=== PATIENT | male | born 1940 | race Caucasian/White ===

== ENCOUNTER 2021-01-26 16:50 | Outpatient (RCR) | payer MEDICARE, SELFPAY ==
[2021-01-26] MEDS: COVID-19 VACC, MRNA(PFIZER)/PF 30 MCG/0.3 ML SYRINGE IM (14:20)
[2021-02-16] MEDS: COVID-19 VACC, MRNA(PFIZER)/PF 30 MCG/0.3 ML SYRINGE IM (14:11)
== END 2021-05-02 23:59 ==
LOC: IMMUN 16:50
PROVIDERS: PCP Family Medicine; Referring Provider Family Medicine; Visit Provider Family Medicine
DX: Z23 Encounter for immunization (principal)
CPT/HCPCS: 0001A; 0002A; 91300

== ENCOUNTER 2022-06-07 10:17 | Emergency (ER) | payer MEDICARE, SELFPAY ==
[2022-06-07 10:18] VITALS: BP 131/71; PULSE 58; RESP 14; TEMP 37.1; O2SAT 98; BMI 22.6
--- NOTE | 2022-06-07 10:34 | EX.ED.GUMALE ---
HPI History of Present Illness Chief Complaint: Complaint Detail of Chief Complaint: Dysuria since yesterday Informant: patient Narrative Narrative: Patient presents to the emergency department with complaint of dysuria that started yesterday. Patient also states that he started with a fever 5 days ago that was low-grade up to 101.8. Patient had diarrhea for 2 days and now that seems to have resolved. Patient states that he was urinating about every hour last night. He denies any back pain or abdominal pain. He denies any vomiting. Patient took a COVID test 3 days ago and was negative. Patient has had the COVID-vaccine and booster. Prior similar symptoms: No PFSH [facility] Medical History (Updated 06/07/22 @ 11:[address] Donavan Wright, DO) HTN (hypertension) Home Medications cephalexin 500 mg capsule 500 mg PO Q6 #40 CAPSULES 06/07/22 [Rx Last Taken Unknown] phenazopyridine 200 mg tablet (Pyridium) 200 mg PO TID 6 doses #6 tabs 06/07/22 [Rx Last Taken Unknown] Allergy/AdvReac Type Severity Reaction Status Date / Time No Known Allergies Allergy Verified 06/07/22 10:20 Social History Smoking Status: Never smoker ROS ROS ED Review of Systems ROS Unobtainable: other Constitutional Constitutional ED: Reports fever(s) and lethargy; Denies chills, sweats or weight loss Eyes Eyes: Denies blurry vision, change in vision or diplopia ENT ENT ED: Denies rhinorrhea or sore throat Cardiovascular Cardiovascular: Reports chest pain and racing heartbeat; Denies orthopnea Respiratory/Chest Respiratory/Chest: Reports dyspnea and dyspnea on exertion; Denies cough, orthopnea or sputum Gastrointestinal Gastrointestinal: Denies abdominal pain, diarrhea, nausea or vomiting Genitourinary Genitourinary ED: Reports dysuria and urinary frequency; Denies hematuria Musculoskeletal Musculoskeletal: Denies arthralgias, back pain, myalgias or neck pain Integumentary Denies abscess, Abrasions or rash Neurologic Neurologic: Denies headache(s) or weakness Psychiatric Psychiatric: Denies anxiety, depression or suicidal thoughts Endocrine Endocrinology: Denies polydipsia, polyphagia or polyuria Hematologic/Lymphatic Hematologic/Lymphatic: Denies easy bleeding, easy bruising or lymphadenopathy Allergic/Immunologic Allergic/Immunologic ED: Denies mouth swelling, tongue swelling or urticaria EXAM Physical Exam Const Vital Signs: 06/07/22 10:18 Temperature 98.8 F Temperature Source Temporal Pulse Rate 58 L Respiratory Rate 14 Blood Pressure 131/71 H Blood Pressure Mean 91 Pulse Ox 98 Oxygen Delivery Method Room Air Positive well nourished and well developed General Appearance ED: well developed and NAD HEENT Reports TM's clear and moist mucous membranes normocephalic and atraumatic; Negative for trauma or tenderness Tympanic Membrane ED: Yes TM's clear Eyes PERRL and EOMs intact bilaterally General Eye ED: Negative for pale conjunctiva or scleral icterus Neck no lymphadenopathy, supple and no JVD General: Negative for tenderness Chest Wall inspection of chest normal and palpation of chest normal Chest: Negative for tenderness Resp normal respiratory effort and clear to auscultation bilaterally Effort and Inspection: Negative for respiratory distress or pain with movement Auscultation: Negative for rhonchi, wheezes or diminished lung sounds Cardio regular rate, regular rhythm, S1 normal heart sound, S2 normal heart sound and no murmurs Peripheral Pulses: pulses 2+ throughout GI normal to inspection, nondistended, normoactive bowel sounds, soft to palpation, non-tender, non-distended and no masses Back/Spine no CVA tenderness and no thoracic nor lumbar tenderness Extremity normal to inspection General Extremety ED: Negative for edema General Extremity: Negative for edema Neuro oriented x3, CN's II-XII intact bilaterally, no sensory deficits noted and gait normal Sensorium / Orientation: awake, alert, oriented to person, oriented to place and oriented to time Motor Exam: strength 5/5 throughout and strength abnormal Psych mental status grossly normal Skin no rashes or lesions noted and no wounds MDM MDM MDM Narrative Medical decision making narrative: Patient had a bladder scan performed on arrival that showed 100 cc of urine after he was able to give a urine sample. I do not feel he is having retention issues. Urinalysis obtained and was positive for 500 excite esterase as well as 10-25 WBCs and +3 bacteria. Given his symptoms and the appearance of the urine I suspect he has a urinary tract infection. Patient will be started on Keflex and Pyridium. Patient advised to follow-up with primary care physician in 3 to 5 days. Patient also will have urine culture sent. Patient advised to return if severe abdominal pain, fever, vomiting, or condition worsen anyway. Lab Data Labs: Laboratory Results - last 24 hr 06/07/22 10:49 Urine Color Yellow Urine Clarity Cloudy Urine pH 6.0 Ur Specific [place] 1.015 Urine Protein 100 H Urine Glucose (UA) Normal Urine Ketones Negative Urine Occult Blood 50 H Urine Nitrite Negative Urine Bilirubin Negative Urine Urobilinogen Normal Ur Leukocyte Esterase 500 H Urine RBC 0 SEEN Urine WBC 10-25 SEEN Ur Squamous Epith Cells 0 SEEN Urine Bacteria 3+ Urine Mucus 0 SEEN Discharge Plan Triage Chief Complaint: Complaint ED Provider: Donavan Wright Dx/Rx/DC Orders Clinical Impression: Urinary tract infection Instructions: ED Urinary Tract Infections in Men Prescriptions: New cephalexin [cephalexin] 500 mg capsule 500 mg PO Q6 Qty: 40 0RF phenazopyridine [Pyridium] 200 mg tablet 200 mg PO TID Qty: 6 0RF Primary Care Provider: Care Physician,No Primary Referrals: Pacheco Sánchez MD [NON-STAFF] - 3-5 Days Disposition Disposition: Home, Self Care
[2022-06-07 10:53] LABS: Mucous, Urine 0 SEEN /hpf (<or=2+); Red Blood Cells-Urine 0 SEEN /hpf (0-5); Squamous Epithelial Cells - UA 0 SEEN /hpf (0-5)
[2022-06-07 10:59] LABS: Color, Urine Yellow (Yellow); Glucose, Dipstick Normal (Normal); Ketone-Dipstick Negative (Negative); Leukocyte Esterase-Dipstick 500 /ul (Negative); Nitrite-Dipstick Negative (Negative); Occult Blood-Urine 50 /ul (Negative); Protein-Dipstick 100 mg/dl (Negative); Specific Gravity, Urine 1.015 (1.002-1.030); Urine Bilirubin Dipstick Negative (Negative); Urine Clarity Cloudy (Clear); Urine Urobilinogen Normal (Normal)
[2022-06-07 11:07] LABS: Bacteria 3+ /hpf (None Seen); White Blood Cells 10-25 SEEN /hpf (0-5)
[2022-06-07] MEDS: Cephalexin 250 MG Capsule 500 MG PO (11:25)
[2022-06-07] MEDS: Phenazopyridine 95 MG Tablet 190 MG PO (11:25)
== END 2022-06-07 11:49 | disposition home or self-care (01) ==
PROVIDERS: Emergency Provider Emergency Medicine; Visit Provider Emergency Medicine
DX: N39.0 Urinary tract infection, site not specified (principal); I10 Essential (primary) hypertension
CPT/HCPCS: 81001; 87077; 87086; 87088; 87186; 99283

== ENCOUNTER 2022-06-08 | Emergency (ER) | payer MEDICARE, SELFPAY ==
[2022-06-08 00:01] VITALS: BP 145/72; PULSE 61; RESP 16; TEMP 36.6; O2SAT 97; BMI 22.6
[2022-06-08 00:03] VITALS: BP 145/72; PULSE 88; RESP 14; TEMP 36.6; O2SAT 97
--- NOTE | 2022-06-08 00:22 | EX.ED.GUMALE ---
HPI History of Present Illness Chief Complaint: Complaint Informant: patient Pain Onset: Today Context: Gradual Onset Timing: Continuous Worsened by: Attempts to urinate Relieved by: Nothing Urinary Symptoms Genitourinary Symptoms: Retention, Dysuria and Hematuria Narrative Narrative: Patient presents with urinary retention and hematuria that began today. Patient was seen here earlier today and diagnosed with a urinary tract infection. Patient was started on Keflex and Pyridium. Patient states his urine was more pinkish instead of the orange color associated with Pyridium. Patient admits to some pressure over his suprapubic area. Patient states this is getting progressively worse. Patient denies any fevers currently. Patient states he had a recent upper respiratory infection. Patient states he had some nausea with that. Patient also admits to a mild headache. Patient denies any back or flank pain. Patient denies any vomiting. [facility] Medical History HTN (hypertension) Home Medications cephalexin 500 mg capsule 500 mg PO Q6 #40 CAPSULES 06/07/22 [Rx Last Taken Unknown] phenazopyridine 200 mg tablet (Pyridium) 200 mg PO TID 6 doses #6 tabs 06/07/22 [Rx Last Taken Unknown] amlodipine 5 mg tablet 5 mg PO DAILY 06/08/22 [History Last Taken Unknown] atenolol 50 mg tablet 50 mg PO DAILY 06/08/22 [History Last Taken Unknown] Allergy/AdvReac Type Severity Reaction Status Date / Time No Known Allergies Allergy Verified 06/08/22 00:03 Surgical History no surgical history no surgical history Social History Smoking Status: Never smoker ROS ROS ED Constitutional Constitutional ED: Reports fever(s); Denies chills Eyes Eyes: Denies blurry vision or change in vision ENT ENT ED: Denies rhinorrhea or sore throat Cardiovascular Cardiovascular: Denies chest pain or palpitations Respiratory/Chest Respiratory/Chest: Denies cough or dyspnea Gastrointestinal Gastrointestinal: Reports nausea; Denies vomiting Genitourinary Genitourinary ED: Reports dysuria and hematuria Musculoskeletal Musculoskeletal: Denies back pain or neck pain Integumentary Denies abscess or rash Neurologic Neurologic: Reports headache(s); Denies weakness Allergic/Immunologic Allergic/Immunologic ED: Denies mouth swelling or urticaria EXAM Physical Exam Const Vital Signs: 06/08/22 00:01 06/08/22 00:03 Temperature 97.9 F 97.8 F Temperature Source Temporal Temporal Pulse Rate 61 88 Respiratory Rate 16 14 Blood Pressure 145/72 H 145/72 H Blood Pressure Mean 96 96 Pulse Ox 97 97 Oxygen Delivery Method Room Air Room Air Positive well nourished and well developed General Appearance ED: well developed and NAD HEENT Reports moist mucous membranes Resp normal respiratory effort and clear to auscultation bilaterally Cardio regular rate and regular rhythm GI non-distended Auscultation: normoactive bowel sounds Palpation: soft and tender suprapubic; Negative for guarding Extremity normal to inspection Neuro oriented x3, CN's II-XII intact bilaterally, moves all extremities, no focal motor deficits and no sensory deficits noted Sensorium / Orientation: alert Motor Exam: strength 5/5 throughout Psych mental status grossly normal MDM MDM MDM Narrative Medical decision making narrative: Webb catheter was placed. Patient was given a leg bag. Patient was instructed to continue the Keflex as previously prescribed. Patient was given a referral for urology for follow-up care. Patient was instructed return if worse in any way. Patient understood and was agreeable with the plan. All questions were answered. Discharge Plan Triage Chief Complaint: Complaint ED Provider: Trung Begum Dx/Rx/DC Orders Clinical Impression: Acute urinary retention, Urinary tract infection Instructions: ED Urinary Retention, Male, ED Urinary Tract Infections in Men Prescriptions: No Action cephalexin [cephalexin] 500 mg capsule 500 mg PO Q6 Qty: 40 0RF phenazopyridine [Pyridium] 200 mg tablet 200 mg PO TID Qty: 6 0RF amlodipine 5 mg Tablet 5 mg PO DAILY atenolol 50 mg Tablet 50 mg PO DAILY Primary Care Provider: Pacheco Sánchez Referrals: Pacheco Sánchez MD [Primary Care Provider] - Josse Tucker MD [STAFF PHYSICIAN] - As soon as possible Disposition Disposition: Home, Self Care
[2022-06-08] MEDS: Lidocaine Jelly 2% 20 ML Syringe (URO-JET) 1 APPLIC TOPICAL (00:43)
== END 2022-06-08 00:54 | disposition home or self-care (01) ==
PROVIDERS: Emergency Provider Emergency Medicine; PCP Family Medicine; Visit Provider Emergency Medicine
DX: N39.0 Urinary tract infection, site not specified (principal); R51.9 Headache, unspecified; I10 Essential (primary) hypertension; R33.9 Retention of urine, unspecified
CPT/HCPCS: 51702; 99283

== ENCOUNTER 2022-06-13 04:45 | Emergency (ER) | payer MEDICARE, SELFPAY ==
[2022-06-13 09:23] LABS: Bacteria 0 SEEN /hpf (None Seen); Color, Urine Yellow (Yellow); Glucose, Dipstick Normal (Normal); Ketone-Dipstick Negative (Negative); Leukocyte Esterase-Dipstick Negative /ul (Negative); Mucous, Urine 0 SEEN /hpf (<or=2+); Nitrite-Dipstick Negative (Negative); Occult Blood-Urine Negative /ul (Negative); Protein-Dipstick Negative (Negative); Red Blood Cells-Urine 0 SEEN /hpf (0-5); Squamous Epithelial Cells - UA 0 SEEN /hpf (0-5); Urine Bilirubin Dipstick Negative (Negative); Urine Clarity Clear (Clear); Urine Urobilinogen Normal (Normal); Urine pH 6.5 (5.0 - 8.0); White Blood Cells 0 SEEN /hpf (0-5)
--- NOTE | 2022-06-13 22:21 | EX.ED.GUMALE ---
HPI History of Present Illness Informant: patient Narrative Narrative: Patient presents with lower abdominal pressure. He has inability to urinate. He does frequently but just gets a few dribbles out. He was seen here approximately a week ago diagnosed with UTI and placed on Keflex. He is not having nausea vomiting fevers or chills. He came back shortly after that with urinary retention. A Webb was placed. This was taken out earlier today and Dr. Tucker's office. He went home and now is not able to urinate again. Nothing makes this better or worse. This chart is done in its entirety a day or more after the patient's visit. This is due to an extended computerized downtime that included computer, Internet, phones, radiology system and transient inability to obtain medications. There may be details that are missed due to the delayed documentation. There was also no ability to research old information that we may have on the patient. Also, this is done with [employer] software that may have errors. Minimizing these errors are attempted, but all may not be able to be found and corrected. [facility] Medical History HTN (hypertension) Home Medications cephalexin 500 mg capsule 500 mg PO Q6 #40 CAPSULES 06/07/22 [Rx Last Taken Unknown] phenazopyridine 200 mg tablet (Pyridium) 200 mg PO TID 6 doses #6 tabs 06/07/22 [Rx Last Taken Unknown] amlodipine 5 mg tablet 5 mg PO DAILY 06/08/22 [History Last Taken Unknown] atenolol 50 mg tablet 50 mg PO DAILY 06/08/22 [History Last Taken Unknown] Allergy/AdvReac Type Severity Reaction Status Date / Time No Known Allergies Allergy Verified 06/08/22 00:03 Social History Smoking Status: Never smoker ROS ROS ED Constitutional Constitutional ED: Denies fever(s), subjective or sweats Cardiovascular Cardiovascular: Denies chest pain or palpitations Respiratory/Chest Respiratory/Chest: Denies cough or dyspnea Gastrointestinal Gastrointestinal: Reports abdominal pain; Denies diarrhea, melena, nausea or vomiting Genitourinary Genitourinary ED: Reports urinary frequency and other Details: See history of present illness peer ; Denies dysuria or hematuria Musculoskeletal Musculoskeletal: Denies back pain Integumentary Denies rash Neurologic Neurologic: Denies paresthesias or weakness Endocrine Endocrinology: Denies polydipsia Hematologic/Lymphatic Hematologic/Lymphatic: Reports other Details: No anticoagulation. No hematuria. ; Denies easy bleeding or easy bruising Allergic/Immunologic Allergic/Immunologic ED: Denies urticaria EXAM Physical Exam Const Positive well nourished and well developed Constitutional Narrative: Patient looks mildly uncomfortable General Appearance ED: well developed; Negative for pallor HEENT normocephalic Eyes General Eye ED: Negative for pale conjunctiva or scleral icterus Resp normal respiratory effort Cardio regular rate and regular rhythm GI GI Narrative: Patient does have palpably enlarged bladder in the lower abdomen. That is the only area that is tender. No rebound or guarding. no CVA tenderness Bladder / Kidney Exam: No CVA tenderness Extremity normal to inspection Neuro Sensorium / Orientation: alert Psych mental status grossly normal Skin General Skin Exam: Negative for jaundice or pallor MDM MDM MDM Narrative Medical decision making narrative: Patient had catheter placed. He has been watched here for a while. He has a total body 1000 cc out. It seems to came out initially a large amount but now slowing down significantly. The urine looks clear. No blood. He is completely resolved with his symptoms. I did send off a UA that showed no acute process. I also was able to look up his results when our computer system came back. He had had a positive E. coli sensitive to Keflex which she is on so he should continue this. I will also start him on Flomax at this time. Flomax prescription was done on paper due to the paper charting. He will follow-up with his urologist Lab Data Attestation: I reviewed the patient's lab results. Labs: Laboratory Results - last 24 hr 06/13/22 04:53 Urine Color Yellow Urine Clarity Clear Urine pH 6.5 Ur Specific [place] 1.010 Urine Protein Negative Urine Glucose (UA) Normal Urine Ketones Negative Urine Occult Blood Negative Urine Nitrite Negative Urine Bilirubin Negative Urine Urobilinogen Normal Ur Leukocyte Esterase Negative Urine RBC 0 SEEN Urine WBC 0 SEEN Ur Squamous Epith Cells 0 SEEN Urine Bacteria 0 SEEN Urine Mucus 0 SEEN Discharge Plan Triage ED Provider: Matt Machuca Dx/Rx/DC Orders Clinical Impression: Acute urinary retention Prescriptions: No Action cephalexin [cephalexin] 500 mg capsule 500 mg PO Q6 Qty: 40 0RF phenazopyridine [Pyridium] 200 mg tablet 200 mg PO TID Qty: 6 0RF amlodipine 5 mg Tablet 5 mg PO DAILY atenolol 50 mg Tablet 50 mg PO DAILY Primary Care Provider: Pacheco Sánchez Referrals: Josse Tucker MD [STAFF PHYSICIAN] - As soon as possible Disposition Disposition: Home, Self Care Discharge Date/Time: 06/13/22 08:06
== END 2022-06-13 08:06 | disposition home or self-care (01) ==
LOC: ED 07:47
PROVIDERS: Emergency Provider Emergency Medicine; PCP Family Medicine; Visit Provider Emergency Medicine
DX: R33.9 Retention of urine, unspecified (principal); I10 Essential (primary) hypertension; Z87.440 Personal history of urinary (tract) infections
CPT/HCPCS: 81001; 99284

== ENCOUNTER 2022-07-11 16:38 | Observation (INO) | payer MEDICARE, SELFPAY ==
[2022-07-11] VITALS (9 sets, daily range): BP systolic 108–135; BP diastolic 57–76; PULSE 58–74; RESP 16–18; TEMP 36–36.8; O2SAT 89–97; BMI 21.7; BMI 22.1
--- NOTE | 2022-07-11 | PROS_PTH ---
PATIENT: MANUEL SALGADO LOC: MS3 U#:[id number] AGE/SX: 81/M ROOM: [facility] [place]07/11/[address]: Dr. Josse Tucker MD : 1940 BED: 1 DIS: 07/12/2022 SPEC #: [id number] RECD: 07/11/22 16:58 STATUS: BAYRON VELIZ #: [id number] JESÚS: 07/11/22 00:[address]: Josse Tucker DEPT: SURGICAL PATHOLOGY RECD BY: Jose Carlos Hendricks ENTERED: 07/12/22 08:55 SP TYPE: TURP OTHR DR: Dr. Srinivas Gomez, DO Tissues: Prostate, NOS Procedures: Surgery Specimen Level IV HEADER OPERATION: Cysto,TUR, prostate, olympus PRE-OP DIAGNOSIS: BPH with retention TISSUE SUBMITTED: Prostate chips MICROSCOPIC DIAGNOSIS Prostate chips, TUR: Benign prostatic hyperplasia, glandular and stromal type. Focal marked acute and chronic granulomatous inflammation. SJ 07/13/2022 COMMENT Special stains for acid fast bacilli and fungi are negative for organisms; matched controls are appropriate. MICROSCOPIC DESCRIPTION Slides are reviewed. GROSS DESCRIPTION Received is one container labeled with the patient's name and designated prostate tissue. The specimen consists of multiple irregular fragments of pink-gong, rubbery, soft tissue that in aggregate weigh 24.5 gm and measure in aggregate 8 x 7.5 x 3.5 cm. [employer]visor [employer] tissue is submitted in 10 cassettes. /SJ:cc 07/12/22 TC:5 CPT: 17989, 94668 x2
--- NOTE | 2022-07-11 12:08 | EKG12_ITS ---
Test Reason : PREOP Blood Pressure : / mmHG Vent. Rate : 059 BPM Atrial Rate : 059 BPM P-R Int : 240 ms QRS Dur : 090 ms QT Int : 432 ms P-R-T Axes : 000 017 047 degrees QTc Int : 427 ms Sinus bradycardia with 1st degree A-V block Septal infarct , age undetermined Abnormal ECG When compared with ECG of 21-NOV-2007 14:50, TN interval has increased Septal infarct is now Present Confirmed by MEHUL OCHOA, ANN MARIE ([id number]), news videotape editor FERNANDO BANKS ([id number]) on 07/12/2022 2:03:09 PM Referred By: Josse Tucker Confirmed By:ANN MARIE CARVER MD
[2022-07-11] MEDS: Lactated Ringers 1,000 ML 15 ML IV (12:15)
--- NOTE | 2022-07-11 13:58 | PCM.HP.STD ---
HPI - General General Date of Service: 07/11/22 HPI Narrative MANUEL SALGADO, is a 81 M who presents for transurethral resection of prostate he has a catheter in for retention of urine. He has BPH with obstruction and retention PFSH Medical History Arthritis Back pain Heartburn History of pain when walking History of stress test HTN (hypertension) Indwelling urethral catheter present Loss of hearing Non-smoker Prostate disease Shortness of breath on exertion Syncope Wears glasses Wears partial dentures Home Medications phenazopyridine 200 mg tablet (Pyridium) 200 mg PO TID 6 doses #6 tabs 06/07/22 [Rx Last Taken Unknown] amlodipine 5 mg tablet 5 mg PO DAILY BP 06/08/22 [History Last Taken 07/11/22] atenolol 50 mg tablet 50 mg PO BID 06/08/22 [History Last Taken 07/11/22] acetaminophen 650 mg tablet,extended release 650 mg PO Q8H PRN Pain 07/05/22 [History Last Taken Unknown] ciprofloxacin HCl 500 mg tablet 500 mg PO BID 07/05/22 [History Last Taken Unknown] polyethylene glycol 3350 17 gram oral powder packet (Miralax) 17 g PO PRN PRN Constipation 07/05/22 [History Last Taken Unknown] tamsulosin 0.4 mg capsule 0.4 mg PO QHS 07/05/22 [History Last Taken Unknown] ciprofloxacin HCl 500 mg tablet (Cipro) 500 mg PO BID #14 tabs 07/11/22 [Rx Last Taken Unknown] Allergy/AdvReac Type Severity Reaction Status Date / Time No Known Allergies Allergy Verified 07/11/22 12:37 Surgical History Hx of colonoscopy Social History Smoking Status: Never smoker Vital Signs Vital Signs Vital Signs: 07/11/22 12:38 07/11/22 12:38 Temperature 97.6 F L Temperature Source Temporal Pulse Rate 58 L Respiratory Rate 17 Respiratory Pattern Normal Blood Pressure 135/76 H Blood Pressure Mean 95 Blood Pressure Source Monitor Blood Pressure Position Semi-Fowlers Blood Pressure Location Right Arm Pulse Ox 96 Oxygen Delivery Method Room Air Weight Weight: 61 kg Body Mass Index (BMI) 21.7
--- NOTE | 2022-07-11 13:58 | PCM.DC ---
Discharge Instructions Diet Discharge Diet: Light diet - advance as tolerated and Soft diet Activity Discharge Activity: May Not Drive Follow Up Care Please Follow Up With: Josse Tucker MD When: 2 weeks, call for appt. Test Results: Test results from this visit will be discussed in further detail at your follow-up appointment, if applicable. Discharge Plan Admission Primary Reason for Your Visit: tur Attending Provider: Josse uTcker Primary Care Provider: Srinivas Gomez Instructions Patient Instructions: [facility] Home Recovery Discharge Orders/Prescriptions Prescriptions: New ciprofloxacin HCl [Cipro] 500 mg tablet 500 mg PO BID Qty: 14 0RF Continued phenazopyridine [Pyridium] 200 mg tablet 200 mg PO TID Qty: 6 0RF amlodipine 5 mg Tablet 5 mg PO DAILY atenolol 50 mg Tablet 50 mg PO BID polyethylene glycol 3350 [Miralax] 17 gram Powder In Packet 17 g PO PRN PRN (Reason: Constipation) ciprofloxacin HCl 500 mg Tablet 500 mg PO BID acetaminophen 650 mg Tablet Extended Release 650 mg PO Q8H PRN (Reason: Pain) tamsulosin 0.4 mg Capsule 0.4 mg PO QHS Referrals / Follow Up: Srinivas Gomez DO [Primary Care Provider] - Josse Tucker MD [Med Staff - Active Staff] - Disposition Disposition (needs filled in before D/C Order can be placed): Home, Self Care
[2022-07-11] MEDS: Cefazolin 2 GM in 0.9% Normal Saline 100 ML IV (14:12)
--- NOTE | 2022-07-11 15:43 | PCM.OPRPT ---
Report of Operation Date of Procedure: 07/11/22 Pre-Operative Diagnosis: bph with retention of urine Post-Operative Diagnosis: same Surgery/Procedure Performed:: TURP Description of Surgical Findings:: In the preoperative setting I discussed with the patient how the surgery would be done with expect afterwards. We discussed how a prostate resection is done and we discussed the risk of the surgery including, bleeding, infection, retrograde ejaculation, changes with ejaculation or intercourse,. We discussed the possibility that the resection of the prostate may not alleviate his urinary symptoms. We discussed the small risk of developing scar tissue along the urethral channel and strictures. We also discussed the chance of the prostate could grow back and he may need further surgery or treatment in the future for prostate problems. Patient was taken back to the operating room, timeout procedure was performed, he was identified and marked and placed on the operating room table. He underwent general anesthesia. He was placed in dorsolithotomy position. Penis and testicles were prepped and draped in usual sterile fashion. Went into the bladder using the visual obturator with a resectoscope. Once inside the bladder identified the right and left ureteral orifice. I then identified the prostate and the anatomy of the prostate. I marked out the area of the sphincter and the verumontanum was identified. I then proceeded with the prostate resection first resected the median lobe. And then resected the right lobe of the prostate. Then to resect the left lobe of the prostate. I then resected the apical tissue of the prostate. This was a complete resection of all obstructive tissue to improve voiding and relieve obstruction. I then made sure that there was no injury to the sphincter or the verumontanum was still intact. At the end of the resection all the chips were Ellik out of the bladder. I then identified the left and right ureteral orifice and these were confirmed to be in good position and effluxing and not injured. The resectoscope was removed, a 22 Indonesian catheter was placed into the bladder on continuous irrigation. And the urine was fairly light pink color and draining normally. He was taken back to the PACU in good condition. CPT 88886 Surgeon: Josse Tucker Type of Anesthesia: General Drains: 22fr [address] Admit VTE Documentation VTE Present on Admission: No VTE Mechan Device Prophylaxis: SCD's VTE Pharm Prophylaxis ordered?: No
[2022-07-11] MEDS: Ciprofloxacin 500 MG Tablet PO (20:37)
[2022-07-11] MEDS: Tamsulosin HCl 0.4 MG Capsule PO (20:38)
[2022-07-12 01:58] VITALS: O2SAT 95
[2022-07-12 02:59] VITALS: BP 117/63; PULSE 54; RESP 18; TEMP 36.6; O2SAT 95
[2022-07-12 08:03] VITALS: BP 138/69; PULSE 64; RESP 18; TEMP 36.5; O2SAT 95
[2022-07-12] MEDS: Ciprofloxacin 500 MG Tablet PO (08:12)
[2022-07-12] MEDS: Atenolol 50 MG Tablet PO (08:12)
[2022-07-12] MEDS: amLODIPine 5 MG Tablet PO (08:12)
--- NOTE | 2022-07-12 10:06 | PHA.DC.MC ---
Pharmacy Service has performed discharge medication reconciliation and counseling for this patient. The patient was counseled on the following discharge medications and changes in medications for homegoing were reviewed. 1. CIPRO The Reason for Use, instructions for use, and potential side effects were reviewed for all new medications. The patient's questions regarding all of their medications were answered. The patient was able to verbally demonstrate an understanding of their discharge medications. Home Medications amlodipine 5 mg tablet 5 mg PO DAILY BP 06/08/22 atenolol 50 mg tablet 50 mg PO BID 06/08/22 acetaminophen 650 mg tablet,extended release 650 mg PO Q8H PRN Pain 07/05/22 ciprofloxacin HCl 500 mg tablet 500 mg PO BID 07/05/22 polyethylene glycol 3350 17 gram oral powder packet (Miralax) 17 g PO PRN PRN Constipation 07/05/22 tamsulosin 0.4 mg capsule 0.4 mg PO QHS 07/05/22 ciprofloxacin HCl 500 mg tablet (Cipro) 500 mg PO BID #14 tabs 07/11/22 The patient's discharge medication list was reviewed for discrepancies and discrepancies were resolved.
--- NOTE | 2022-07-12 12:18 | NURSING ---
Pt voided 200cc drk red urine this morning and another 200cc of drk red urine just now. Pt was Bladder scanned by Tracee Yanez RN, and only obtained 18cc per bladder scan. Pt does not feel urge to void.
[2022-07-12 13:34] VITALS: BP 129/63; PULSE 62; RESP 18; TEMP 36.5; O2SAT 95
== END 2022-07-12 13:43 | disposition home or self-care (01) ==
LOC: SDC 16:43 → MS3 17:41
PROVIDERS: Admitting Provider Urology; PCP Family Medicine; Referring Provider Urology; Visit Provider Urology
PROC: (CPT 52601; principal; 2022-07-11 14:00)
DX: N40.1 Benign prostatic hyperplasia with lower urinary tract symptoms (principal); R33.8 Other retention of urine; I10 Essential (primary) hypertension; M19.90 Unspecified osteoarthritis, unspecified site; N13.8 Other obstructive and reflux uropathy; Z79.899 Other long term (current) drug therapy
CPT/HCPCS: 52601; 00914; 88305; 93005; 99218; J7120; G0378; J2405

== ENCOUNTER → 2023-12-03 | Outpatient (CLI) | payer MEDICARE, SELFPAY | END | disposition home or self-care (01) | LOC: LAB 11:10 | PROVIDERS: PCP Family Medicine; Referring Provider Urology; Visit Provider Urology | DX: Z12.5 Encounter for screening for malignant neoplasm of prostate (principal) | CPT/HCPCS: 36415; 84153; G0103 ==

== ENCOUNTER → 2024-12-07 | Outpatient (CLI) | payer MEDICARE, SELFPAY ==
[2024-12-07 12:34] LABS: PSA,Total- Diagnostic 2.99 ng/mL (0.0-4.0)
== END | disposition home or self-care (01) ==
LOC: LAB 11:13
PROVIDERS: Referring Provider Nurse Practitioner; Visit Provider Nurse Practitioner
DX: R97.20 Elevated prostate specific antigen [PSA] (principal)

== ENCOUNTER 2025-11-18 21:20 | Emergency (ER) | payer MEDICARE, SELFPAY ==
[2025-11-18] VITALS (14 sets, daily range): BP systolic 104–143; BP diastolic 50–100; PULSE 58–77; RESP 14–18; TEMP 35.6–37.1; O2SAT 94–99; BMI 20.9
--- NOTE | 2025-11-18 21:22 | EKG12_ITS ---
Test Reason : NEURO Blood Pressure : */* mmHG Vent. Rate : 63 BPM Atrial Rate : 63 BPM P-R Int : 218 ms QRS Dur : 90 ms QT Int : 470 ms P-R-T Axes : 57 59 60 degrees QTcB Int : 480 ms Sinus rhythm with 1st degree A-V block with Premature supraventricular complexes Septal infarct , age undetermined Abnormal ECG Confirmed by Slade Nair ([id number]), editor magazine FERNANDO BANKS ([id number]) on 11/19/2025 8:26:04 AM Referred By: Confirmed By: Slade Nair
--- NOTE | 2025-11-18 21:25 | CT_ITS ---
PROCEDURE: STROKE BRAIN/HEAD WITHOUT CONT 11/18/2025 REASON FOR EXAM: NEURO DEFICIT, ACUTE, STROKE SUSPECTED TECHNIQUE: Procedure Code: CTBR.ST Modality: CT Procedure: STROKE BRAIN/HEAD WITHOUT CONT Coronal and Sagittal reconstruction series were provided. One or more dose reduction techniques were used (e.g., Automated exposure control, adjustment of the mA and/or kV according to patient size, use of iterative reconstruction technique. RADIATION DOSE SUMMARY: DLP: 829.85 mGycm COMPARISON: None available. FINDINGS: There is a right dense MCA sign. Subtle dos santos-white differentiation loss of the right insular cortex. No acute hemorrhage. Confluent periventricular and subcortical white matter hypodensities compatible with chronic microvascular ischemic changes. No significant mass effect or brain herniation. Global cerebral volume loss. No hydrocephalus. No extra-axial fluid collection. The basal cisterns are patent. The mastoid air cells are clear. The paranasal sinuses are predominantly clear. The calvarium appears intact. ASPECTS: Acute middle cerebral artery (MCA) Territory Involved: Right Caudate nuclei (C): 1 Lenticular nuclei (L): 1 Insular Cortex (I): 0 Posterior limb (IC): 1 Low ant. MCA (M1): 1 Low mid MCA (M2): 1 Low post. MCA (M3): 1 High ant. MCA (M4): 1 High mid MCA (M5): 1 High post. MCA (M6): 1 Total = 9 ASPECTS Reference: Scoring applies to left and right middle cerebral artery territories independently. When ischemia is limited to one side, the ASPECTS may be omitted from the uninvolved side. Of the ten zones, 4 are gangliocapsular and insular, 3 are in the low MCA territory, and 3 are in the mid MCA territory. Each zone is scored as 0 (evidence of early ischemic change) or 1 (no evidence of early ischemic change). Normal scans would score 10 on both sides while abnormal scans would score 0-9 on the affected side(s). Please note that there may be interobserver variability in ASPECTS and determination of clinical management is deferred to the Stroke Neurology and Neurointerventional team(s) CT/STROKE Brain/Head without Cont IMPRESSION: 1. Right dense MCA sign. Subtle dos santos-white differentiation loss at the right i nsular cortex. 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 2. No acute hemorrhage. 3. Severe chronic microvascular ischemic changes. Communication notice: The impression above was relayed directly by Dr. Shana Geronimo by telephone to Benjamin Hernandez on 11/18/2025 at 9:54 pm with readback verification. Reading Location: [facility]
--- NOTE | 2025-11-18 21:25 | CT_ITS ---
PROCEDURE: STROKE CTA HEAD AND NECK W/CON 11/18/2025 REASON FOR EXAM: NEURO DEFICIT, ACUTE, STROKE SUSPECTED TECHNIQUE: Procedure Code: [id number].ST.HN Modality: CT Procedure: STROKE CTA HEAD AND NECK W/CON Multidetector CT angiography of the head and neck with intravenous contrast was performed with multiplaner and maximum intensity projection (MIP) reconstructions. CONTRAST: Isovue 370 VOLUME: 94 mL One or more dose reduction techniques were used (e.g., Automated exposure control, adjustment of the mA and/or kV according to patient size, use of iterative reconstruction technique). RADIATION DOSE SUMMARY: DLP: 621.48 mGycm COMPARISON: None available. FINDINGS: CTA NECK: Standard three-vessel configuration of the aortic arch. The origins of the vessels arising from the aortic arch are patent without high-grade stenosis. Right carotid artery: The right common carotid artery is patent without high- grade stenosis. The right cervical internal carotid artery is patent without hemodynamically significant stenosis. Left carotid artery: The left common carotid artery is patent without high-grade stenosis. The left cervical internal carotid artery is patent without hemodynamically significant stenosis. Cervical vertebral arteries: The cervical vertebral arteries are patent without high-grade stenosis. Right dominant vertebral artery. Assessment for carotid stenosis is performed utilizing NASCET criteria. NASCET carotid stenosis criteria: 0% - none, 1-49% - mild, 50-69% - moderate, 70-89% - severe, 90-99% - critical. % ICA stenosis = (normal distal cervical ICA diameter - narrowest cervical ICA diameter / normal distal cervical ICA diameter) x 100. CTA Head: The petrous, cavernous, and intracranial internal carotid arteries are patent without high-grade stenosis. The proximal anterior cerebral arteries are patent without high-grade stenosis. 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 The proximal right middle cerebral arteries are patent without high-grade stenosis. The intradural vertebral arteries are patent without high-grade stenosis. The basilar artery is patent without high-grade stenosis. The proximal posterior cerebral arteries are patent without high-grade stenosis. origin of the right [employer]. No dominant intracranial aneurysm or high flow arteriovenous malformation is identified. Ancillary findings: Cervical spondylosis. 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 Red Alert: The critical findings in the impression above were relayed directly by Dr. Shagufta Geronimo by telephone to Milli Andino on 11/18/2025 at 9:54 pm with readback verification. Reading Location: [id number]
--- OUTSIDE RECORDS SUMMARY | 2025-11-18 21:31 | XMS RPT_ITS | CCD ---
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 Name Role Phone Jonatan OCHOA, Tom Akins Unavailable RENETTA OCHOA, MIKE Garrison Primary Care Physician SHMUEL BOWMAN, DR NICOLE Perera Primary Care Physician [phone] SHMUEL BOWMAN, DR NICOLE Perera Attending [facility] SHMUEL BOWMAN, DR NICOLE Perera Primary Care [place], [place] Primary Care Unavailable [place], Maria Teresa Referring Unavailable [place], Maria Teresa Attending Unavailable Unavailable Unavailable Unavailable Allergies Allergy Classification Reported Allergen(s) Allergy Type Date of Onset Reaction(s) Facility (1 source) Allergic rhinitis due to pollen drug allergy 08-25-2019 [facility] Work Phone: Medications Current Medications Medication Drug Class(es) Dates Sig (Normalized) Sig (Original) 8 hr acetaminophen 650 mg extended release oral tablet (8 sources) Start: 07-05-2022 take 650 mg by mouth every eight hours Acetaminophen Active 650 MG PO Q8H July 04, 2022 11:00pm Start: 02-05-2018 take 1 dose by mouth every six hours as needed for pain Tylenol Dose : 500 mg =, Oral, q6hr, PRN as needed for pain, 0 Refill(s) Start Date: 02/05/18 Status: Ordered Albuterol (1 source) beta2-Adrenergic Agonist Start: 05-24-2020 take 2 puff(s) by inhalation every four hours ProAir HFA MDI (90 mcg/inh) inhalation aerosol 2 puff(s), Inhalation, q4h, # 8.5 gram(s), 11 Refill(s), Pharmacy: [facility]/pharmacy #[id number], 166.5, cm, 05/24/20 10:57:00 EDT, Height, kg, 06/30/20 10:57:00 EDT, Dosing Weight Start Date: 05/24/20 Status: Ordered albuterol MDI (90 mcg/inh) CFC free inhalation aerosol (5 sources) Start: 12-14-2021 take 2 puff(s) by inhalation every four hours as needed for wheezing albuterol MDI (90 mcg/inh) CFC free inhalation aerosol 2 puff(s), Inhalation, q4h, PRN as needed for wheezing, # 18 gram(s), 0 Refill(s), Pharmacy: [facility]/pharmacy #[id number], 160, cm, 12/14/21 8:00:00 EST, Height, kg, 12/14/21 8:00:00 EST, Dosing Weight Start Date: 12/14/21 Status: Ordered amLODIPine 5 mg oral tablet (10 sources) Dihydropyridine Calcium Channel True Start: 06-08-2022 amLODIPine 5 mg oral tablet Dose : 5 mg = 1 tab(s), Oral, qDay, # 90 tab(s), 3 Refill(s), Pharmacy: [facility], 166, cm, 01/14/23 15:53:00 EST, Height, kg, 01/14/23 15:53:00 EST, Dosing Weight Start Date: 08/19/23 Status: Ordered Start: 08-23-2021 amLODIPine 5 m g oral tablet Dose : 5 mg = 1 tab(s), Oral, qDay, # 90 tab(s), 3 Refill(s), Pharmacy: [facility], 166.5, cm, 08/17/21 11:26:00 EDT, Height, kg, 08/17/21 11:26:00 EDT, Dosing Weight Start Date: 08/23/21 Status: Ordered Start: 08-25-2019 AMLODIPINE BES YLATE 5 MG TABS 1 tablet daily AMLODIPINE BESYLATE [id number] Tom Cheung MD atenolol 50 mg oral tablet (10 sources) beta-Adrenergic True Start: 06-08-2022 atenol ol 50 mg oral tablet Dose : 50 mg = 1 tab(s), Oral, qDay, change in dose., # 90 tab(s), 3 Refill(s), Pharmacy: [facility], 166, cm, 01/14/23 15:53:00 EST, Height, kg, 01/14/23 15:53:00 EST, Dosing Weight Start Date: 08/19/23 Status: Ordered Start: 06-08-2022 take 50 mg by mouth once daily Atenolol Active 50 MG PO DAILY June 08, 2022 12:00am Start: 08-23-2021 atenolol 50 mg oral tablet Dose : 50 mg = 1 tab(s), Oral, BID, # 180 tab(s), 3 Refill(s), Pharmacy: [facility], 166.5, cm, 08/17/21 11:26:00 EDT, Height, kg, 08/17/21 11:26:00 EDT, Dosing Weight Start Date: 08/23/21 Status: Ordered Start: 08-25-2019 ATENOLOL 50 MG TABS 1 tablet 2 times daily ATENOLOL [id number] Tom Cheung MD benzonatate 100 mg oral capsule (1 source) Non-narcotic Antitussive Start: 12-14-2021 End: 12-24-2021 Tessalon Perles 100 mg oral capsule Dose : 100 mg = 1 cap(s), Oral, TID, PRN as needed for cough, X 10 day(s), # 30 cap(s), 0 Refill(s), 12/24/21 8:35:00 EST, Pharmacy: [facility]/pharmacy #[id number], 160, cm, 12/14/21 8:00:00 EST, Height, kg, 12/14/21 8:00:00 EST, Dosing Weight Start Date: 12/14/21 Stop Date: 12/24/21 Status: Ordered cephalexin 500 mg oral capsule (2 sources) Cephalosporin Antibacterial Start: 06-07-2022 take 500 mg by mouth every six hours Cephalexin Active 500 MG PO EVERY 6 HOURS 40 June 07, 2022 12:00am ciprofloxacin 500 mg oral tablet (6 sources) Quinolone Antimicrobial Start: 07-05-2022 take 1 tablet by mouth twice daily Ciprofloxacin Hcl (Cipro) 500 mg tablet Active 500 MG PO TWICE A DAY July 10, 2022 11:00pm methylPREDNISolone 4 mg oral tablet (2 sources) Corticosteroid Start: 04-17-2022 End: 04-23-2022 Medrol Dosepak 4 mg oral tablet Per Dosepak Instructions, Oral, Daily, as directed on package labeling, X 6 day(s), # 1 EA, 0 Refill(s), 04/23/22 9:19:00 EDT, [id number] 167.6, cm, 04/17/22 9:04:00 EDT, Height Start Date: 04/17/22 Stop Date: 04/23/22 Status: Ordered Start: 01-23-2022 End: 01-29-2022 take 1 tablet by mouth once daily Medrol 4 mg oral tablet 1 packet(s), Oral, qDay, as directed on package labeling, X 6 day(s), # 21 tab(s), 0 Refill(s), 01/29/22 8:33:00 EST, [id number], Cervical spondylosis without myelopathy, 167.6, cm, 01/23/22 8:12:00 EST, Height, kg, 01/23/22 8:12:00... Start Date: 01/23/22 Stop Date: 01/29/22 Status: Ordered phenazopyridine hydrochloride 200 mg oral tablet (2 sources) Start: 06-07-2022 take 1 tablet by mouth three times daily Phenazopyridine (Pyridium) 200 mg tablet Active 200 MG PO THREE TIMES A DAY June 07, 2022 12:00am polyethylene glycol 3350 07050 mg powder for oral solution (3 sources) Osmotic Laxative Start: 07-05-2022 Polyethylene Glycol 3350 (Miralax) 17 gram Powder In Packet Active 17 GM PO NEEDED July 04, 2022 11:00pm tamsulosin hydrochloride 0.4 mg oral capsule (3 sources) alpha-Adrenerg ic True Start: 07-05-2022 take 0.4 mg by mouth at bedtime Tamsulosin Active 0.4 MG PO AT BEDTIME July 04, 2022 11:00pm Completed/Discontinued Medications Medication Drug Class(es) Dates Sig (Normalized) Sig (Original) DIPHENHYDRAMINE-AP AP (SLEEP) TABS (1 source) Histamine-1 Receptor Antagonist Start: 08-25-2019 TYLENOL PM EXTRA STRENGTH TABS as needed DIPHENHYDRAMINE-APA P (SLEEP) TABS [id number] Tom Cheung MD Problems Active Problems Problem Classification Problem Date Documented Da te Episodic/Chronic Essential hypertension (6 sources) Hypertensive disorder; Translations: [Essential hypertension] 05-24-2020 Chronic Genitourinary symptoms and ill-defined conditions (4 sources) Acute retention of urine ; Translations: [Other retention of urine] 06-16-2022 Episodic Other screening for suspected conditions (not mental disorders or infectious disease) (1 source) Elevated prostate specific antigen [PSA]; Translations: [Elevated prostate specific antigen [PSA]] Onset: 12-30-2024 Episodic Residual codes; unclassified (5 sources) Requires vaccination 09-07-2020 Episodic Spondylosis; intervertebral disc disorders; other back problems (5 sources) Cervical spondylosis without myelopathy; Translations: [Cervical spondylosis] 01-23-2022 Chronic Spondylosis; intervertebral disc disorders; other back problems (1 source) Spinal stenosis in cervical region; Translations: [Spinal stenosis, cervical region] Episodic Urinary tract infections (5 sources) Urinary tract infectious disease; Translations: [Urinary tract infection, site not specified] 06-15-2022 Episodic Past or Other Problems Problem Classification Problem Date Documented Da te Episodic/Chronic Other connective tissue disease (1 source) Other synovitis and tenosynovitis, right hand; Translations: [Other synovitis and tenosynovitis, right hand] Onset: 08-25-2019 08-25-2019 Episodic Unclassified (1 source) Problem Results Test Name Value Interpretation Reference Range Facility PSA,Total- Diagnosticon 11-25 PSA, DIAGNOSTIC 2.99 ng/mL Normal 0.0-4.0 [facility] Comment on above: Result Comment: This test was performed using the TPSA assay method for the [employer] chemistry system. Values obtained with different assay methods cannot be used interchangably. When changing PSA assays in the course of monitoring a patient, additional sequential testing should be carried out to confirm baseline values. Performed By: #### L [id number] #### [facility] [address] [place], [address] .GFRon 05-13-2024 GFR 53 ml/min/1.73sqm Normal [facility] ([place]) Comment on above: Result Comment: GFR Population mean for , Non- Americans Ages 20-29 = 116 mL/min/1.73 sq.m. Ages 30-39 = 107 mL/min/1.73 sq.m. Ages 40-49 = 99 mL/min/1.73 sq.m. Ages 50-59 = 93 mL/min/1.73 sq.m. Ages 60-69 = 85 mL/min/1.73 sq.m. Ages 70+ = 75 mL/min/1.73 sq.m. Chronic Kidney Disease: Less than 60 mL/min/1.73 square meters End Stage Renal Disease: Less than 15 mL/min/1.73 square meters Performed By: #### C MP, GFR, LIPID #### [address] [address] GFR Non- 44 ml/min/1.73sqm Normal [facility] ([place]) Comment on above: Result Comment: GFR Population mean for , Non- Americans Ages 20-29 = 116 mL/min/1.73 sq.m. Ages 30-39 = 107 mL/min/1.73 sq.m. Ages 40-49 = 99 mL/min/1.73 sq.m. Ages 50-59 = 93 mL/min/1.73 sq.m. Ages 60-69 = 85 mL/min/1.73 sq.m. Ages 70+ = 75 mL/min/1.73 sq.m. Chronic Kidney Disease: Less than 60 mL/min/1.73 square meters End Stage Renal Disease: Less than 15 mL/min/1.73 square meters Performed By: #### C MP, GFR, LIPID #### [address] [address] CMPon 05-13-2024 Albumin Level 4.2 G/dL Normal 3.4-4.8 [facility] ([place]) Comment on above: Performed By: #### C MP, GFR, LIPID #### [address] [address] Albumin/Globulin [Mass ratio] 1.2 {ratio} Normal 1.1-2.5 [facility] ([place]) Comment on above: Performed By: #### C MP, GFR, LIPID #### [address] [address] ALP [Catalytic activity/Vol] 85 U/L Normal 40-135 [facility] ([place]) Comment on above: Performed By: #### C MP, GFR, LIPID #### [address] [address] ALT [Catalytic activity/Vol] 34 U/L Normal 16-63 [facility] ([place]) Comment on above: Performed By: #### C MP, GFR, LIPID #### [address] [address] AST [Catalytic activity/Vol] 24 U/L Normal 10-40 [facility] ([place] Comment on above: Performed By: #### C MP, GFR, LIPID #### [address] [address] Bili Total 0.7 mg/dL Normal 0.2-1.0 [facility] ([place]) Comment on above: Result Comment: Use of this assay is not recommended for patients undergoing treatment with eltrombopag due to the potential for falsely elevated results. Performed By: #### C MP, GFR, LIPID #### [address] [address] BUN/Creatinine Ratio 17 ratio Normal 7-27 [facility] ([place]) Comment on above: Performed By: #### C MP, GFR, LIPID #### [address] [address] Calcium [Mass/Vol] 9.1 mg/dL Normal 8.4-10.2 [facility] ([place]) Comment on above: Performed By: #### C MP, GFR, LIPID #### [address] [address] Chloride [Moles/Vol] 104 mmol/L Normal 98-107 [facility] ([place]) Comment on above: Performed By: #### C MP, GFR, LIPID #### [address] [address] CO2 [Moles/Vol] 30 mmol/L Normal 23-31 [facility] ([place] Comment on above: Performed By: #### C MP, GFR, LIPID #### [address] [address] Creatinine [Mass/Vol] 1.54 mg/dL High 0.70-1.30 [facility] ([place]) Comment on above: Performed By: #### C MP, GFR, LIPID #### [address] [address] Electrolyte Balance 7.0 mEq/L Normal 4.0-15.0 [facility] ([place]) Comment on above: Performed By: #### C MP, GFR, LIPID #### [address] [address] Globulin 3.6 G/dL Normal [facility] ([place]) Comment on above: Performed By: #### C MP, GFR, LIPID #### [address] [address] Glucose [Mass/Vol] 91 mg/dL Normal 83-110 [facility] ([place]) Comment on above: Performed By: #### C MP, GFR, LIPID #### [address] [address] Potassium [Moles/Vol] 4.4 mmol/L Normal 3.5-5.1 [facility] ([place]) Comment on above: Performed By: #### C MP, GFR, LIPID #### [address] [address] Sodium [Moles/Vol] 141 mmol/L Normal 136-145 [facility] ([place]) Comment on above: Performed By: #### C MP, GFR, LIPID #### [address] [address] Total Protein 7.8 G/dL Normal 6.4-8.2 [facility] ([place] Comment on above: Performed By: #### C MP, GFR, LIPID #### [address] [address] Urea nitrogen [Mass/Vol] 26 mg/dL High 7-18 [facility] ([place]) Comment on above: Performed By: #### C MP, GFR, LIPID #### [address] [place], [place] [address] LABORATORYOrdered By: SYSTEM SYSTEM on 05-13-2024 Albumin BCP dye [Mass/Vol] 4.2 G/dL Normal 3.4 - 4.8 G/dL AO ADM SS Albumin/Globulin [Mass ratio] 1.2 {ratio} Normal 1.1 - 2.5 ratio AO ADM SS ALP [Catalytic activity/Vol] 85 U/L Normal 40 - 135 U/L AO ADM SS ALT With P-5'-P [Catalytic activity/Vol] 34 U/L Normal 16 - 63 U/L AO ADM SS AST With P-5'-P [Catalytic activity/Vol] 24 U/L Normal 10 - 40 U/L AO ADM SS Bilirubin [Mass/Vol] 0.7 mg/dL Normal 0.2 - 1 .0 mg/dL AO ADM SS Comment on above: Interpretive Data: U se of this assay is not recommended for patients undergoing treatment with eltrombopag due to the potential for falsely elevated results. Calcium [Mass/Vol] 9.1 mg/dL Normal 8.4 - 10. 2 mg/dL AO ADM SS Chloride [Moles/Vol] 104 mmol/L Normal 98 - 10 7 mmol/L AO ADM SS CO2 [Moles/Vol] 30 mmol/L Normal 23 - 31 mmol/L AO ADM SS Creatinine [Mass/Vol] 1.54 mg/dL High 0.70 - 1.30 mg/dL AO ADM SS Electrolyte Balance 7.0 mEq/L Normal 4.0 - 15 .0 mEq/L AO ADM SS GFR/1.73 sq M.predicted among blacks MDRD (S/P/Bld) [Vol rate/Area] 53 ml/min/1.73sqm Invalid Interpretation Code AO Chemistry S Comment on above: Interpretive Data: GFR Population mean for , Non- Americans Ages 20-29 = 116 mL/min/1.73 sq.m. Ages 30-39 = 107 mL/min/1.73 sq.m. Ages 40-49 = 99 mL/min/1.73 sq.m. Ages 50-59 = 93 mL/min/1.73 sq.m. Ages 60-69 = 85 mL/min/1.73 sq.m. Ages 70+ = 75 mL/min/1.73 sq.m. Chronic Kidney Disease: Less than 60 mL/min/1.73 square meters End Stage Renal Disease: Less than 15 mL/min/1.73 square meters GFR/1.73 sq M.predicted among non-blacks MDRD (S/P/Bld) [Vol rate/Area] 44 ml/min/1.73sqm Invalid Interpretation Code AO Chemistry S Comment on above: Interpretive Data: GFR Population mean for , Non- Americans Ages 20-29 = 116 mL/min/1.73 sq.m. Ages 30-39 = 107 mL/min/1.73 sq.m. Ages 40-49 = 99 mL/min/1.73 sq.m. Ages 50-59 = 93 mL/min/1.73 sq.m. Ages 60-69 = 85 mL/min/1.73 sq.m. Ages 70+ = 75 mL/min/1.73 sq.m. Chronic Kidney Disease: Less than 60 mL/min/1.73 square meters End Stage Renal Disease: Less than 15 mL/min/1.73 square meters Globulin 3.6 G/dL Invalid Interpretation Code AO ADM SS Glucose [Mass/Vol] 91 mg/dL Normal 83 - 110 mg/dL AO ADM SS Potassium [Moles/Vol] 4.4 mmol/L Normal 3.5 - 5.1 mmol/L AO ADM SS Protein [Mass/Vol] 7.8 G/dL Normal 6.4 - 8.2 G/dL AO ADM SS Sodium [Moles/Vol] 141 mmol/L Normal 136 - 145 mmol/L AO ADM SS Urea nitrogen [Mass/Vol] 26 mg/dL High 7 - 18 mg/dL AO ADM SS Urea nitrogen/Creatinine [Mass ratio] 17 ratio Normal 7 - 27 ratio AO ADM SS LABORATORYOrdered By: Tera Mancilla on 05-13-2024 Cholesterol [Mass/Vol] 162 mg/dL Normal 0 - 200 mg/dL AO ADM SS Comment on above: Interpretive Data: C holesterol Reference Interval: Less than 200 Desirable 200-239 Borderline high risk 240 and above High risk Cholesterol in HDL [Mass/Vol] 58 mg/dL Normal 40 - 60 mg/dL AO ADM SS Cholesterol in LDL [Mass/Vol] 89 mg/dL Normal 0 - 130 mg/dL AO ADM SS Triglyceride [Mass/Vol] 74 mg/dL Normal 0 - 150 mg/dL AO ADM SS Comment on above: Interpretive Data: T riglyceride Reference Interval: Less than 150 Normal 150-199 Borderline high risk 200-499 High risk 500 or higher Very high risk LIPIDon 05-13-2024 Cholesterol [Mass/Vol] 162 mg/dL Normal 0-200 [facility] ([place]) Comment on above: Result Comment: Chol esterol Reference Interval: Less than 200 Desirable 200-239 Borderline high risk 240 and above High risk Performed By: #### C MP, GFR, LIPID #### [address] [place], [place] [address] Cholesterol in HDL [Mass/Vol] 58 mg/dL Normal 40-60 [facility] ([place]) Comment on above: Performed By: #### C MP, GFR, LIPID #### [address] [address] Cholesterol in LDL [Mass/Vol] 89 mg/dL Normal 0-130 [facility] ([place]) Comment on above: Performed By: #### C MP, GFR, LIPID #### [address] [address] Triglyceride [Mass/Vol] 74 mg/dL Normal 0-150 [facility] ([place]) Comment on above: Result Comment: Trig lyceride Reference Interval: Less than 150 Normal 150-199 Borderline high risk 200-499 High risk 500 or higher Very high risk Performed By: #### C MP, GFR, LIPID #### [address] [address] No Panel InformationOrdered By: Josse Tucker on 12-03-2023 Prostate Specific Antigen Screen 5.20 ng/mL 0.00-4.00 [facility] Comment on above: This test was perfor med using the TPSA assay method for the[facility] chemistry system. Values obtained with differentassay methods cannot be used interchangably.When changing PSA assays in the course of monitoring apatient, additional sequential testing should be carriedout to confirm baseline values. Basophil percentageon 2021 Basophil percentage 0 SEEN /hpf 0-5 [facility] Work Phone: Bilirubin Test strip Ql (U)o n 06-13-2022 Bilirubin Ql (U) Negative Negative [facility] Work Phone: Ketones Test strip Ql (U)on 06-13-2022 Ketones Ql (U) Negative Negative [facility] Work Phone: Mucus LM Ql (Urine sed)on Mucus Ql (Urine sed) 0 SEEN /hpf [facility] Work Phone: Nitrite Test strip Ql (U)on 06-13-2022 Nitrite Ql (U) Negative Negative [facility] Work Phone: Protein Test strip Ql (U)on 06-13-2022 Protein Ql (U) Negative Negative [facility] Work Phone: Squamous epithelial cells de tection in urine sediment by light microscopyon 06-13-2022 Epithelial cells.squamous LM Ql (Urine sed) 0 SEEN /hpf 0-5 [facility] Work Phone: Urine blood detectionon 05-26 RBC Ql (U) Negative Negative [facility] Work Phone: RBC Ql (U) 0 SEEN /hpf 0-5 [facility] Work Phone: Urine clarityon 06-13-2022 Clarity (U) Clear Clear [facility] Work Phone: Urine color determinationon 06-13-2022 Color (U) Yellow Yellow [facility] Work Phone: Urine glucose detectionon Glucose Ql (U) Normal mg/dl Normal [facility] Work Phone: Urine leukocyte esterase det ection by dipstickon 06-13-2022 Leukocyte esterase Test strip Ql (U) Negative Negative [facility] Work Phone: Urine pHon 06-13-2022 pH (U) 6.5 [pH] 5.0 - 8.0 [facility] Work Phone: Urine sediment bacteria coun t by microscopy (number/high power field)on 06-13-2022 Bacteria LM.HPF (Urine sed) [#/Area] 0 /[HPF] None Seen [facility] Work Phone: Urine specific gravity measu rementon 06-13-2022 Specific gravity (U) [Rel density] 1.010 1.002-1.03 0 [facility] Work Phone: Urobilinogen Auto test strip Ql (U)on 06-13-2022 Urobilinogen Ql (U) Normal mg/dl Normal [facility] Work Phone: Basophil percentageon 2021 Basophil percentage 10-25 SEEN /hpf 0-5 [facility] Work Phone: Bilirubin Test strip Ql (U)o n 06-07-2022 Bilirubin Ql (U) Negative Negative [facility] Work Phone: Ketones Test strip Ql (U)on 06-07-2022 Ketones Ql (U) Negative Negative [facility] Work Phone: Mucus LM Ql (Urine sed)on Mucus Ql (Urine sed) 0 SEEN /hpf [facility] Work Phone: Nitrite Test strip Ql (U)on 06-07-2022 Nitrite Ql (U) Negative Negative [facility] Work Phone: Protein Test strip Ql (U)on 06-07-2022 Protein Ql (U) 100 mg/dl Negative [facility] Work Phone: Squamous epithelial cells de tection in urine sediment by light microscopyon 06-07-2022 Epithelial cells.squamous LM Ql (Urine sed) 0 SEEN /hpf 0-5 [facility] Work Phone: Urine blood detectionon 05-25 RBC Ql (U) 50 /ul Negative [facility] Work Phone: RBC Ql (U) 0 SEEN /hpf 0-5 [facility] Work Phone: Urine clarityon 06-07-2022 Clarity (U) Cloudy Clear [facility] Work Phone: Urine color determinationon 06-07-2022 Color (U) Yellow Yellow [facility] Work Phone: Urine glucose detectionon Glucose Ql (U) Normal mg/dl Normal [facility] Work Phone: Urine leukocyte esterase det ection by dipstickon 06-07-2022 Leukocyte esterase Test strip Ql (U) 500 /ul Negative [facility] Work Phone: Urine pHon 06-07-2022 pH (U) 6.0 [pH] 5.0 - 8.0 [facility] Work Phone: Urine sediment bacteria coun t by microscopy (number/high power field)on 06-07-2022 Bacteria LM.HPF (Urine sed) [#/Area] 3 /[HPF] None Seen [facility] Work Phone: Urine specific gravity measu rementon 06-07-2022 Specific gravity (U) [Rel density] 1.015 1.002-1.03 0 [facility] Work Phone: Urobilinogen Auto test strip Ql (U)on 06-07-2022 Urobilinogen Ql (U) Normal mg/dl Normal [facility] Work Phone: LABORATORYOrdered By: Tera Mancilla on 12-14-2021 ADMITTED TO INTENSIVE CARE UNIT FOR CONDITION OF INTEREST:FIND:PT:^YUAN TIENT:ORD: No (12/14/21 12:05 PM) Invalid Interpretation Code AO Auto Urine SS EMPLOYED IN A HEALTHCARE SETTING:FIND:PT:^LEON IENT:ORD: No (12/14/21 12:05 PM) Invalid Interpretation Code AO Auto Urine SS FIRST TEST FOR CONDITION OF INTEREST:FIND:PT:^YUAN TIENT:ORD: Yes (12/14/21 12:05 PM) Invalid Interpretation Code AO Auto Urine SS HAS SYMPTOMS RELATED TO CONDITION OF INTEREST:FIND:PT:^YUAN TIENT:ORD: Yes (12/14/21 12:05 PM) Invalid Interpretation Code AO Auto Urine SS Illness or injury onset date and time [id number] Invalid Interpretation Code AO Auto Urine SS Patient was hospitalized because of this condition No (12/14/21 12:05 PM) Invalid Interpretation Code AO Auto Urine SS status Not (12/14/21 12:05 PM) Invalid Interpretation Code AO Auto Urine SS RESIDES IN A CONGREGATE CARE SETTING:FIND:PT:^PAT IENT:ORD: No (12/14/21 12:05 PM) Invalid Interpretation Code AO Auto Urine SS SARS-CoV-2 (COVID-19) RNA CARMEN+probe Ql (Resp) Positive *ABN* (12/14/21 12:05 PM) Invalid Interpretation Code Negative AO Auto Urine SS SARS-CoV-2 (COVID-19) RNA CARMEN+probe Ql (Unsp spec) Positive results are indicative of the presence of SARS-CoV-2 RNA; clinical correlation with patient history and other diagnostic information is necessary to determine patient infection status. Positive results do not rule out bacterial infection or co-infection with other viruses. The agent detected may not be the definite cause of disease. Laboratories within the [facility] and its territories are required to report all positive results to the appropriate public health authorities.Detection of analyte target(s) does not imply that the corresponding virus(es) are infectious or are the causative agents for clinical symptoms.There is a risk of false positive values resulting from cross-contamination by target organisms, their nucleic acids or amplified product, or from non-specific signals in the assay.[employer]AC SARS-CoV-2 Assay is a Real-Time reverse-transcriptase polymerase chain reaction (RT-PCR) based qualitative in vitro diagnostic test intended for the qualitative detection of nucleic acid from the SARS-CoV-2 in nasopharyngeal swab specimens collected from individuals suspected of COVID-19 by their healthcare provider. Testing is limited to laboratories certified under the Clinical Laboratory Improvement Amendments of 1988 (CLIA), 42 U.S.C. 263a, to perform moderate and high complexity tests. Invalid Interpretation Code AO Auto Urine SS Clinical Summary: HMSPatient IDon 08-25-2019 number of previous outpatient psychiatric treatments [id number] SOT [facility] Work Phone: SOP [facility] Work Phone: Clinical Summary: Scanned Hi story Summaryon 08-25-2019 Data entered by patient, allergy list Plant Pollens (Hay Fever) Karol [facility] Work Phone: data entered by patient, Employer Name Retired [facility] Work Phone: data entered by patient, father's medical history Cancer [facility] Work Phone: Data entered by patient, history of past surgeries Hand surgeryHernia repairShoulder surgery otherTrigger finger [facility] Work Phone: data entered by patient, mother's medical history Alcoholism [facility] Work Phone: data entered by patient, past medical history High blood pressureArthritisOsteopenia [facility] Work Phone: data entered by patient, social history, current smoker never smoker [facility] Work Phone: data entered by patient, social history, marital status [facility] Work Phone: father of patient is alive or [facility] Work Phone: Housing Type: apartment, house, residential, trailer, none House [facility] Work Phone: housing unit size (asthma environmental history, housing) (from single family to don't know) 2 Floors [facility] Work Phone: medical history of patient's brother(s) CancerHigh blood pressureStroke/TIA [facility] Work Phone: mother of patient is alive or [facility] Work Phone: Number of dependent children No [facility] Work Phone: Office Visit: New - 1st visi t with practice, Rm: 10on 08-25-2019 NEGATED: Highlighted rowTobacco smoking status NHIS Tobacco smoking status NHIS [facility] Work Phone: NEGATED: Highlighted rowxray history of the right hand on 08/10/2019 at [facility] Work Phone: Culture, urine Bacteria identified Cx Nom (U) Escherichia coli [facility] Work Phone: Vital Signs Date Time Vital Sign Value Performing Clinician Facility 07-12-2022 13:34-0400 Body temperature 97.7 [degF] [facility] Work Phone: 07-12-2022 13:34-0400 Diastolic blood pressure 63 mm[Hg] [facility] Work Phone: 07-12-2022 13:34-0400 Heart rate 62 /min [facility] Work Phone: 07-12-2022 13:34-0400 Respiratory rate 18 /min [facility] Work Phone: 07-12-2022 13:34-0400 SaO2% (BldA) [Mass fraction] 95 % [facility] Work Phone: 07-12-2022 13:34-0400 Systolic blood pressure 129 mm[Hg] [facility] Work Phone: 07-11-2022 17:41-0400 Body height 167.64 cm [facility] Work Phone: 07-11-2022 17:41-0400 Body mass index (BMI) [Ratio] 22.1 kg/m2 [facility] Work Phone: 07-11-2022 17:41-0400 Body weight 62.27 kg [facility] Work Phone: 07-11-2022 17:38-0400 Inhaled oxygen flow rate 2 L/min [facility] Work Phone: 06-08-2022 00:03-0400 Body temperature 97.8 [degF] [facility] Work Phone: 06-08-2022 00:03-0400 Diastolic blood pressure 72 mm[Hg] [facility] Work Phone: 06-08-2022 00:03-0400 Heart rate 88 /min [facility] Work Phone: 06-08-2022 00:03-0400 Respiratory rate 14 /min [facility] Work Phone: 06-08-2022 00:03-0400 SaO2% (BldA) [Mass fraction] 97 % [facility] Work Phone: 06-08-2022 00:03-0400 Systolic blood pressure 145 mm[Hg] [facility] Work Phone: 06-08-2022 00:01-0400 Body height 167.64 cm [facility] Work Phone: 06-08-2022 00:01-0400 Body mass index (BMI) [Ratio] 22.6 kg/m2 [facility] Work Phone: 06-08-2022 00:01-0400 Body weight 63.5 kg [facility] Work Phone: 06-07-2022 10:18-0400 Body height 167.64 cm [facility] Work Phone: 06-07-2022 10:18-0400 Body mass index (BMI) [Ratio] 22.6 kg/m2 [facility] Work Phone: 06-07-2022 10:18-0400 Body temperature 98.8 [degF] [facility] Work Phone: 06-07-2022 10:18-0400 Body weight 63.5 kg [facility] Work Phone: 06-07-2022 10:18-0400 Diastolic blood pressure 71 mm[Hg] [facility] Work Phone: 06-07-2022 10:18-0400 Heart rate 58 /min [facility] Work Phone: 06-07-2022 10:18-0400 Respiratory rate 14 /min [facility] Work Phone: 06-07-2022 10:18-0400 SaO2% (BldA) [Mass fraction] 98 % [facility] Work Phone: 06-07-2022 10:18-0400 Systolic blood pressure 131 mm[Hg] [facility] Work Phone: NEGATED: Highlighted [id number] 13:55-0400 BMI (Body Mass Index) 23.38 kg/m2 Eyal Ring CHEMICAL ENGINEERING INTERN [facility] Work Phone: NEGATED: Highlighted [id number] 13:55-0400 Body weight 63.5 kg Eyal Ring CHEMICAL ENGINEERING INTERN [facility] Work Phone: NEGATED: Highlighted [id number] 13:55-0400 Body weight 64 kg Eyal Ring CHEMICAL ENGINEERING INTERN [facility] Work Phone: NEGATED: Highlighted [id number] 13:55-0400 BP Diastolic 71 mm[Hg] yEal Ring CHEMICAL ENGINEERING INTERN [facility] Work Phone: NEGATED: Highlighted [id number] 13:55-0400 BP Systolic 137 mm[Hg] Eyal Ring CHEMICAL ENGINEERING INTERN [facility] Work Phone: NEGATED: Highlighted [id number] 13:55-0400 Height 165.1 cm Eyal Ring CHEMICAL ENGINEERING INTERN [facility] Work Phone: NEGATED: Highlighted [id number] 13:55-0400 Height 165 cm Eyal Ring CHEMICAL ENGINEERING INTERN [facility] Work Phone: NEGATED: Highlighted [id number] 13:55-0400 Pulse (Heart Rate) 57 /min Eyal Ring LPN [facility] Work Phone: Encounters Encounter Date Encounter Type Care Provider Facility Start: 12-07-2024 End: 12-07-2024 [facility] Start: 05-13-2024 End: 05-13-[address] NICOLE GOMEZ DO Facility:[facility] Start: 05-13-2024 End: 05-13-[address] NICOLE GOMEZ DO [facility] Start: 12-03-2023 End: 12-03-2023 ambulatory [facility] Work Phone: Start: 12-03-2023 End: 12-03-2023 Patient encounter procedure [facility] Work Phone: Start: 07-12-2022 End: 07-12-2022 ambulatory [facility] Work Phone: Start: 07-12-2022 End: 07-12-2022 Discharged Recurring [facility]Patient Link Start: 07-11-2022 End: 07-12-2022 Evaluation and management of inpatient [facility]Medical Surgical 3 Start: 06-13-2022 End: 06-13-2022 Emergency department patient visit [facility] Start: 06-08-2022 End: 06-08-2022 Emergency department patient visit [facility] Start: 06-07-2022 End: 06-07-2022 Emergency department patient visit [facility] Start: 04-17-2022 End: 04-17-2022 Patient encounter procedure TOM VALVERDE MD [facility] Start: 01-23-2022 End: 01-23-2022 Patient encounter procedure TOM VALVERDE MD [facility] Start: 01-17-2022 End: 02-08-2022 Physical therapy management NABIL LANDIS DO [facility] Start: 12-14-2021 End: 12-14-2021 Patient encounter procedure 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 [facility] Start: 01-26-2021 End: 01-26-2021 Discharged Recurring [facility]Immun[facility] Start: 08-25-2019 End: 08-25-2019 Ot evaluation Tom Cheung MD Work Phone: [facility] Work Phone: Start: 08-25-2019 End: 08-25-2019 Patient encounter procedure Tom Cheung MD Work Phone: [facility] Work Phone: Procedures Date Procedure Procedure Detail Performing Clinician Start: 07-11-2022 Cysto,TUR,Prostate,O lymp us (Not Applicable) Start: 08-25-2019 End: 08-25-2019 Blood pressure within normal parameters - no follow-up required Tom Cheung MD Work Phone: Start: 08-25-2019 End: 08-25-2019 BMI documented within normal parameters - no follow-up plan is required Tom Cheung MD Work Phone: Start: 08-25-2019 End: 08-25-2019 Documentation of current medications Tom Cheung MD Work Phone: Start: 08-25-2019 End: 08-25-2019 Injection - betamethasone acetate 3 mg and betamethasone sodium phosphate 3 mg Tom Cheung MD Work Phone: Start: 08-25-2019 End: 08-25-2019 Injection 1 tendon sheath/ligament aponeurosis Tom Cheung MD Work Phone: Start: 08-25-2019 End: 08-25-2019 Pain assessment documented as positive - follow-up documented Tom Cheung MD Work Phone: Start: 08-25-2019 End: 08-25-2019 Tobacco non-user Tom Cheung MD Work Phone: Start: 08-25-2019 End: 08-25-2019 [facility] C[employer] STATIC Tom Cheung MD Work Phone: Start: 09-06-2005 Repair of right ingu inal hernia [facility] [employer] Start: 11-25-1999 History of operative procedure on shoulder [facility] [employer] Start: 11-25-1966 Urinary bladder structure (body structure) [facility] [employer] Comment on above: blockage Adult hydrocele (disorder) [facility] [employer] Colonoscope, device (physical object) [facility] [employer] Urine culture NEGATED: Highlighted rowStart: 08-25-2019 End: 08-25-2019 Documentation of current medications Eyal Ring LPN Plan of Treatment Date Care Activity Detail Author Start: 07-12-2022 Patient discharge [facility] Work Phone: Start: 07-12-2022 Removal of urinary catheter [facility] Work Phone: Start: 07-11-2022 Following clinical pathway protocol [facility] Work Phone: Start: 07-11-2022 Admission procedure [facility] Work Phone: Start: 07-11-2022 Anesthesia transurethral resection of prostate ANESTH REMOVAL OF PROSTATE [facility] Work Phone: Start: 07-11-2022 Trurl electrosurg rescj prostate bleed complete PROSTATECTOMY (TURP) [facility] Work Phone: Start: 07-11-2022 Admission procedure [facility] Work Phone: Start: 07-11-2022 Irrigation of urinary bladder [facility] Work Phone: Start: 06-07-2022 [facility] Work Phone: Start: 08-25-2019 End: 08-25-2019 Appointment Appointment [facility] Work Phone: Start: 08-25-2019 End: 08-25-2019 Appointment [facility] Work Phone: Bacteria identified in Urine by Culture Urine Culture [facility] Work Phone: Patient Education [facility] Work Phone: Patient referral [facility] Work Phone: Immunizations Immunization Date Immunization Notes Care Provider Fa [facility] 09-07-2022 SARSCoV2 mRNA(vwmkdgqolfd13p+)biv al vac; Translations: [IntelliDOT-Unica COVID-19 (12y+) Bivalent Booster Vaccine PF] DR NICOLE GOMEZ DO [facility] 09-07-2022 influenza, high dose seasonal, preservative-free DR NICOLE GOMEZ DO [facility] 04-17-2022 COVID-19, mRNA, LNP- S, PF, 100 mcg or 50 mcg dose; Translations: [Moderna COVID-19 Vaccine] TOM VALVERDE MD [facility] 11-28-2021 influenza, high dose seasonal, preservative-free; Translations: [Fluad Quadrivalent PF ] RAJ MCNEIL [facility] 09-07-2021 Covid (Pfizer) [facility] 02-16-2021 Covid (Pfizer) [facility] 01-26-2021 [facility] Comment on above: Result Comment: 2021: [id number] 09-07-2020 influenza, injectabl e, quadrivalent, preservative free; Translations: [Fluarix PF Quadrivalent ] [facility] ELECTRICAL AND INSTRUMENT MECHANIC-OPENER TENDER [facility] 10-09-2019 influenza, injectabl e, quadrivalent, preservative free; Translations: [Fluarix PF Quadrivalent ] [facility] ELECTRICAL AND INSTRUMENT MECHANIC-OPENER TENDER [facility] 12-07-2015 pneumococcal conjuga te vaccine, [address] NICOLE GOMEZ DO [facility] 09-22-2015 zoster vaccine, live DR KAREY GOMEZ DO [facility] 12-01-2014 pneumococcal polysaccharide vaccine, [address] NICOLE GOMEZ DO [facility] 05-15-2012 tetanus toxoid, redu valdo diphtheria toxoid, and acellular pertussis vaccine, adsorbed DR NICOLE GOMEZ DO [facility] Payers Date Payer Category Payer Self-pay [id number] 2024 Medicare [id number] 1940 Unknown [id number] Medicare [id number] Unknown [id number] Unknown [id number] Social History Date Type Detail Facility Start: 1940 Sex Assigned At Male [facility] Work Phone: Start: 05-24-2020 Never smoked tobacco (finding) [facility] Start: 06-07-2022 End: 07-05-2022 Tobacco smoking status OKIS Unknown if ever smoked [facility] NEGATED: Highlighted rowStart: 08-25-2019 End: 08-25-2019 Alcohol use Alcohol use [facility] Work Phone: NEGATED: Highlighted rowStart: 08-25-2019 End: 08-25-2019 Details of drug misuse behavior Details of drug misuse behavior [facility] Work Phone: NEGATED: Highlighted rowStart: 08-25-2019 End: 08-25-2019 Assertion Never smoker [facility] Work Phone: Goals Date Patient Goal Desired Activity /State Functional Status Date Assessment Result Facility 07-12-2022 Functional status Ambulates;Up ad osiris;Aletha ir [facility] Work Phone: Mental Status Date Assessment Result Facility 07-12-2022 Cognitive function Level Of Cons ciousness Awake;Alert;Appropriate;Follow s Commands [facility] Work Phone: 07-12-2022 Cognitive function Appropriate;Cooperativ e [facility] Work Phone: 07-11-2022 Cognitive function Arousable To Touch/Sha yasmin [facility] Work Phone: Evaluation + Plan note Note Date & Type Note Facility Evaluation + Plan note No data available for this section [facility] Evaluation + Plan note Note Date & Type Note Facility Evaluation + Plan note Future Appointments Appointment Date:01/24/2022 08:30:00 AM Scheduled Provider: Location:[facility] Appointment Type:PT Treatment [place] Appointment Date:02/20/2022 08:45:00 AM Scheduled Provider:TOM VALVERDE MD Location:[facility] PM Appointment Type:PM OV [facility] Evaluation + Plan note Note Date & Type Note Facility Evaluation + Plan note Future Appointments Appointment Date:02/20/2022 08:45:00 AM Scheduled Provider:TOM VALVERDE MD Location:[facility] PM Appointment Type:PM OV [facility] Evaluation + Plan note Note Date & Type Note Facility Evaluation + Plan note Future Appointments Appointment Date:05/18/2024 02:00:00 PM Scheduled Provider:MALAIKA MARTINEZ Location:[facility] [place] Appointment Type:[facility] Medicare [facility] Evaluation note Note Date & Type Note Facility Evaluation note No [facility] Work [facility]: Hospital Discharge instructions Note Date & Type Note Facility Hospital Discharge instructions No data available for this section [facility] Progress note Note Date & Type Note Facility Progress note No data available for this section [facility] Chief Complaint Chief Complaint Description Start Date right hand pain Preliminary chief co mplaint data, not yet signed by the author as of Instructions Instruction Description Start Date Completed Advance Directives No Advanced Directives Records Found Advance Directive Response Recorded Date/ Time Living Will Yes June 07, 2022 10:52am Power of Prosthetic Lab Technician Yes June 07 10:52am Name of Medical Power of Prosthetic Lab Technician Lorena Abel rt June 07, 2022 10:52am Advance Directive Response Recorded Date/ Time Name of Medical Power of Prosthetic Lab Technician Lorena Page rt June 07, 2022 10:52am Living Will No June 08, 2022 12:09am Power of Prosthetic Lab Technician No [address], 202 2 12:09am Advance Directive Response Recorded Date/ Time Name of Medical Power of Prosthetic Lab Technician Lorena Abel rt June 07, 2022 10:52am Name of Medical Power of Prosthetic Lab Technician Lorena Abel rt July 11, 2022 5:43pm Living Will Yes July 11 2 5:43pm Power of Prosthetic Lab Technician Yes July 11, 022 5:43pm Advance Directive Response Recorded Date/ Time Living Will Yes July 11 2 4:43pm Power of Prosthetic Lab Technician Yes July 11 022 4:43pm Assessments There may be information available, but it has not been provided by the sender.No Assessments Information Available Review of System There may be information available, but it has not been provided by the sender. Family History There may be information available, but it has not been provided by the sender. No data available for this section No Family History Records FoundNo Family History Records Found History of Present Illness There may be information available, but it has not been provided by the sender. Chief Complaint and Reason for Visit Chief Complaint PFIZER VACCINE Chief Complaint pain with urination Chief Complaint pain with urination COMPLAINT Chief Complaint pain with urination COMPLAINT CYSTO, TURP, OLYMPUS Summary Purpose Additional Source Comments Reason for Visit (unrecogniz ed section and content) Reason For Visit Description New - 1st visit with practice Preliminary reason f or visit data, not yet signed by the author as of right hand pain Care Team (unrecognized sect ion and content) Team Status: Active Member Role Status Dates Dr. Mike Sánchez MD Family Provider Active Dr. Nicole Gomez DO Primary Care Provider Active Team Status: Inactive Member Role Status Dates Dr. Nicole Gomez DO Primary Care Provider Active Dr. Josse Tucker MD Attending Provider, Referr ing Provider Active Goals (unrecognized section and content) Goals may be documented in a n alternate section (unrecognized sect ion and content) No Status Records FoundNo Status Records Found INFORMATION SOURCE (unrecogn ized section and content) DATE CREATED AUTHOR 05/15/2024 [facility] ([place]) DATE CREATED AUTHOR AUTHOR'S ORGANIZ ATION 01/02/2025 [facility] FOR RECORDS PERTAINING TO PATIENTS WHO ARE OR HAVE BEEN ENROLLED IN A CHEMICAL DEPENDENCY/SUBSTANCEABUSE PROGRAM, SOME INFORMATION MAY BE OMITTED. This clinical summary was aggregated from multiple sources. Caution should be exercised in using it in the provision of clinical care. This summary normalizes information from multiple sources, and as a consequence, information in this document may materially change the coding, format and clinical context of patient data. In addition, data may be omitted in some cases. CLINICAL DECISIONS SHOULD BE BASED ON THE PRIMARY CLINICAL RECORDS. [facility]. provides no warranty or guarantee of the accuracy or completeness of information in this document.
--- NOTE | 2025-11-18 21:37 | ED.VIS.STROK ---
HPI History of Present Illness Chief Complaint: Stroke Alert Informant: patient, spouse/S.O. and EMS Narrative Narrative: Patient is 85-year-old male with history of hypertension presents with strokelike symptoms. was watching TV with him. Initially she thought he was mimicking a shark voice because it was not making much sense. She then realized that he was slurring his speech and had a facial droop slightly on the left side with some drool coming out. She realized he could not move his left arm and called 911. This was at approximately 840. Last known well was at 8:30 PM. He was in his normal state of health before that. He is normally quite active for his age. He is not on any blood thinners. No report of any recent falls or trauma. Prior similar symptoms: No Recent Illness/Hospitalization: No PFSH PFSH Medical History Loss of hearing Wears glasses Wears partial dentures Arthritis Indwelling urethral catheter present Prostate disease Back pain Syncope Heartburn Shortness of breath on exertion Non-smoker History of pain when walking History of stress test HTN (hypertension) Home Medications ?Medication ?Instructions ?Recorded ?Last Taken ?Type amlodipine 5 mg tablet 5 mg PO DAILY BP 06/08/22 11/18/25 History atenolol 50 mg tablet 50 mg PO Q24H 06/08/22 07/11/22 History acetaminophen 650 mg 650 mg PO Q8H PRN Pain 07/05/22 Unknown History tablet,extended release multivitamin (Daily Multi-Vitamin 1 tab PO DAILY 11/18/25 Unknown History tablet) Allergy/AdvReac Type Severity Reaction Status Date / Time No Known Allergies Allergy Verified 11/18/25 22:29 Surgical History Hx of colonoscopy Social History Smoking Status: Never smoker ROS ROS ED ROS Narrative Review systems mostly obtained from . Patient able to communicate with me does have a mild headache. Review of Systems ROS Unobtainable: other Details: Difficulty speaking EXAM Physical Exam Const Vital Signs: 11/18/25 21:22 11/18/25 21:29 11/18/25 21:32 Temperature 98.8 F Temperature Source Temporal Pulse Rate 77 77 Respiratory Rate 16 16 Blood Pressure 143/75 H 143/75 H Blood Pressure Mean 97 97 Blood Pressure Source Blood Pressure Position Blood Pressure Location Pulse Ox 97 96 96 Oxygen Delivery Method Room Air Room Air Room Air 11/18/25 21:43 11/18/25 21:44 11/18/25 21:44 Temperature 96.1 F L Temperature Source Rectal Rectal Pulse Rate 72 61 Respiratory Rate 15 14 Blood Pressure 115/94 H 134/81 H Blood Pressure Mean 101 98 Blood Pressure Source Monitor Blood Pressure Position Supine Blood Pressure Location Left Arm Pulse Ox 99 97 98 Oxygen Delivery Method Room Air Room Air Room Air 11/18/25 21:52 11/18/25 21:59 11/18/25 22:14 Temperature 96.4 F L 96.6 F L Temperature Source Core Core Pulse Rate 58 L 62 Respiratory Rate 14 18 Blood Pressure 136/93 H 134/81 H 135/100 H Blood Pressure Mean 98 111 Blood Pressure Source Monitor Monitor Blood Pressure Position Supine Supine Blood Pressure Location Left Arm Left Arm Pulse Ox Oxygen Delivery Method Room Air Room Air 11/18/25 22:22 11/18/25 22:30 11/18/25 22:42 Temperature 96.9 F L 96.9 F L 97.1 F L Temperature Source Core Core Pulse Rate 67 69 68 Respiratory Rate 16 16 16 Blood Pressure 104/65 104/65 104/65 Blood Pressure Mean 78 78 78 Blood Pressure Source Blood Pressure Position Blood Pressure Location Pulse Ox 96 96 96 Oxygen Delivery Method Room Air Room Air Positive well nourished and well developed General Appearance ED: well developed HEENT Reports moist mucous membranes Eyes PERRL Eyes Narrative: Bilateral rightward gaze deviation. Appears to have visual field deficits to the left side of the bilateral eyes. Neck supple and no JVD Chest Wall inspection of chest normal Resp normal respiratory effort and clear to auscultation bilaterally Cardio Rate: regular rate Rhythm: regular rhythm GI normal to inspection, nondistended, normoactive bowel sounds, soft to palpation and non-tender Extremity normal to inspection General Extremety ED: Negative for deformity General Extremity: Negative for deformity Neuro oriented x3 Neuro Narrative: Significant left facial droop. Dysarthria present. Weakness to the left upper extremity and to a lesser degree the left lower extremity. Lack of sensation and neglect to the left side. See NIH below. Sensorium / Orientation: alert Psych mental status grossly normal Skin no wounds General Skin Exam: Negative for jaundice Rashes: no rashes MDM MDM MDM Narrative Medical decision making narrative: Patient evaluated for acute onset of left-sided deficits. Presentation highly concerning for acute stroke involving the right MCA. Differential also includes large vessel occlusion and intracranial hemorrhage. Stroke alert was called prior to arrival. Patient evaluate immediately upon arrival. The start vomiting is given Zofran. Is sent to CT. With Zofran vomiting stopped is able to protect his airway on his own. Does not require emergent intubation. Case discussed with neurology who is in agreement with TNK. TNK is administered after discussion with radiology that he does not have any intracranial hemorrhage. Patient's presentation, risk and benefits discussed at length with patient's and daughter then also with patient. They are in agreement with administering TNK. CTA is concerning for MCA stroke with occlusion at M2. Due to the proximal nature of this neurology did feel that patient would benefit from retrieval and recommends transfer. Patient and family agreeable and patient be transferred to [facility]. Patient kirti hemodynamically stable in the emergency room. Closely monitored. [facility] at approximately 2320. Lab Data Attestation: I reviewed the patient's lab results. Labs: Laboratory Results - last 24 hr 11/18/25 21:39 WBC 8.6 RBC 4.05 L Hgb 12.5 L Hct 38.1 L MCV 94.1 H MCH 30.9 MCHC 32.8 RDW Std Deviation 45.5 H RDW Coeff of Aureliano 13.2 Plt Count 181 MPV 10.7 Immature Gran % (Auto) 0.200 Neut % (Auto) 39.8 L Lymph % (Auto) 45.0 H Surry % (Auto) 10.8 H Eos % (Auto) 3.4 Baso % (Auto) 0.8 Absolute Neuts (auto) 3.4 Absolute Lymphs (auto) 3.87 Nucleated RBC % 0 PT 15.5 H INR 1.2 APTT 25.1 Sodium 135 Potassium 3.5 Chloride 100 Carbon Dioxide 24.0 Anion Gap 10 BUN 29 H Creatinine 1.49 H Estim Creat Clear Calc 31.35 L Est GFR (MDRD) Non-Af 46 L BUN/Creatinine Ratio 19.4 Glucose 152 H Calcium 8.7 Troponin T High Sens 18 Radiography Diagnostic Testing: Clinical Impression(s) from Imaging Studies Brain CT 11/18/25 21:25 IMPRESSION: 1. Right dense MCA sign. Subtle dos santos-white differentiation loss at the right insular cortex. 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 2. No acute hemorrhage. 3. Severe chronic microvascular ischemic changes. Communication notice: The impression above was relayed directly by Dr. Shana Geronimo by telephone to Dr. Milli Hernandez on 11/18/2025 at 9:54 pm with readback verification. Reading Location: [facility] Head/Neck CTA 11/18/25 21:25 IMPRESSION: Occlusion of right M2 MCA inferior branch. Red Alert: The critical findings in the impression above were relayed directly by Dr. Shana Geronimo by telephone to Milli Andino on 11/18/2025 at 9:54 pm with readback verification. Reading Location: [facility] Rhythm Strip Rhythm Strip: A-fib Rate: 63 Ectopy: None EKG Initial EKG: Attestation: I personally reviewed and interpreted this EKG as follows: Interpretation: Atrial Fibrillation Comments: Atrial fibrillation at a rate of 63 beats per minutes Normal axis Management Discussion w/another healthcare provider: [facility] and Radiologist Discharge Plan Triage Chief Complaint: Stroke Alert ED Provider: Milli Hernandez Dx/Rx/DC Orders Clinical Impression: Acute ischemic right MCA stroke, Acute left-sided weakness, Dysarthria due to acute stroke, Atrial fibrillation Prescriptions: No Action amlodipine 5 mg Tablet 5 mg PO DAILY atenolol 50 mg Tablet 50 mg PO Q24H acetaminophen 650 mg Tablet Extended Release 650 mg PO Q8H PRN (Reason: Pain) multivitamin [Daily Multi-Vitamin] Tablet 1 tab PO DAILY [facility] [Primary Care Provider, None] Print Language: Citizen Of [place] Disposition Disposition: Acute Care Hospital Discharge Location: [facility] Neurosurgery NIHSS NIHSS 1a. Level of Consciousness: 0 - Alert; keenly responsive 1b. LOC Questions: 0 - Answers BOTH questions correctly 1c. LOC Commands: 0 - Performs BOTH tasks correctly 2. Best Gaze: 2 - Forced deviation, 3. Visual: 2 - Complete hemianopia 4. Facial Palsy: 3 - Complete paralysis of one or both sides 5a. Left Arm: 1 - Drift; arm drifts downward but doesn?t hit the bed 5b. Right Arm: 0 - No drift; arm holds 90 (or 45) degrees for full 10 seconds 6a. Left Le - No drift; leg holds 30-degree position for full 5 seconds 6b. Right Le - No drift; leg holds 30-degree position for full 5 seconds 7. Limb Ataxia: 0 - Absent 8. Sensory: 2 - Severe to total sensory loss; 9. Best Language: 1 - [id number] aphasia; 10. Dysarthria: 2 - Severe dysarthria; 11. Extinction and Inattention: 2 - Profound hai-inattention or extinction to more than one modality; Total: 15 Stroke Questions Stroke Team Activated: Yes Reviewed Inclusion/Exclusion criteria: Yes IV Thrombolytic Administered: Yes No contraindications from thrombolytic administration: Yes Informed the patient and/or family of all associated risks, benefits, & alternatives to IV Thrombolytic Therapy. Patient and/or family voluntarily consent to the administration of IV Thrombolytic Therapy: Yes
[2025-11-18 22:03] LABS: Hematocrit 38.1 % (40-54); Hemoglobin 12.5 g/dL (13.0-16.5); Immature Granulocytes Count 0.020 X10^3/uL (0.0-0.0); Mean Corp Hgb Conc 32.8 g/dL (32-36); Mean Corpuscular Volume 94.1 fL (80-94); Mean Platelet Vol. 10.7 fl (6.2-12.0); NRBC Flagged by Analyzer 0 % (0-5); Platelet Count 181 K/mm3 (150-450); RBC Distribution Width CV 13.2 % (11.6-14.6); RBC Distribution Width SD 45.5 fl (35.1-43.9); Red Blood Count 4.05 M/mm3 (4.6-6.2); White Blood Count 8.6 K/mm3 (4.4-11.0)
[2025-11-18] MEDS: 0.9% Normal Saline (1000mL) 1,000 ML 100 ML IV (22:13)
[2025-11-18 22:25] LABS: Partial Thromboplast Time 25.1 Seconds (24.1-36.2); Prothrombin Time (Protime)PT. 15.5 SECONDS (11.7-14.9)
[2025-11-18 22:27] LABS: Anion Gap 10 (7-18); BUN 29 mg/dL (4-19); BUN/Creat Ratio 19.4 RATIO (10-20); Calcium,Total 8.7 mg/dL (7.6-11.0); Carbon Dioxide 24.0 mmol/L (20.0-29.0); Chloride 100 mmol/L (96-106); Estimated Creatinine Clearance 31.35 ml/min (50-250); Glucose 152 mg/dL (70-99); Potassium 3.5 mmol/L (3.5-5.1); Troponin T High Sensitivity 18 ng/L (<=22)
== END 2025-11-18 23:39 | disposition short-term general hospital (02) ==
PROVIDERS: Emergency Provider Emergency Medicine; Visit Provider Emergency Medicine
DX: I63.511 Cerebral infarction due to unspecified occlusion or stenosis of right middle cerebral artery (principal); I69.354 Hemiplegia and hemiparesis following cerebral infarction affecting left non-dominant side; I48.91 Unspecified atrial fibrillation; I69.322 Dysarthria following cerebral infarction; I10 Essential (primary) hypertension; Z79.899 Other long term (current) drug therapy
CPT/HCPCS: 51702; 70450; 70496; 70498; 80048; 84484; 85025; 85610; 85730; 93005; 99285; J3101; Q9967; A4216; J2405